=== PATIENT | male | born 1995 | race Caucasian/White ===

== ENCOUNTER 2019-02-26 22:25 | Emergency (ER) | payer SELFPAY ==
[~2019-02-26] VITALS: Ht 152.4 cm; Wt 58.4 kg
[2019-02-27] MEDS ORDERED: SULFAMETHOXAZOLE/TRIMETHOPRIM 800/160MG TABLET PO ONE
[2019-02-27] MEDS ORDERED: ONDANSETRON 4MG ODT PO ONE
[2019-02-27] MEDS ORDERED: LIDOCAINE HCL 1% 20ML VIAL (Pyxis) INJ INFIL ONE
[2019-02-27] MEDS ORDERED: CEFTRIAXONE SODIUM 1 G/VIAL IM ONE
[2019-02-27] MEDS ORDERED: HYDROCODONE/ACETAMINOPHEN 5/325MG TABLET PO ONE
[2019-02-27 00:46] VITALS: BP 123/77
== END 2019-02-27 01:30 | disposition home or self-care (01) ==
LOC: ER 22:25
DX: L02.31 Cutaneous abscess of buttock (principal)
CPT/HCPCS: 96372; 99284; J0696; J3490; Q0162